=== PATIENT | female | born 1960 | race African-American/Black ===

== ENCOUNTER 2018-03-25 09:46 | Emergency (ER) | payer SELFPAY ==
[~2018-03-25] VITALS: Ht 167.6 cm; Wt 82.0 kg
[2018-03-25] MEDS ORDERED: HYDR-2510 PO (09:56)
[2018-03-25] MEDS ORDERED: AMLO2.5T45 PO (09:56)
[2018-03-25] MEDS ORDERED: KETOROLAC 30MG/ML VIAL IV ONE (10:30)
[2018-03-25] MEDS ORDERED: DEXAMETHASONE 10 MG/ML VIAL IV ONE (10:30)
[2018-03-25] MEDS ORDERED: SODIUM CHLORIDE 0.9% 1,000 ML IV ONE (10:30)
[2018-03-25] MEDS ORDERED: CLINDAMYCIN 600 MG in DEXTROSE 5% WATER 50 ML IV ONE (10:45)
[2018-03-25] MEDS ORDERED: CLINDAMYCIN 600 MG in DEXTROSE 5% WATER 50 ML IV SCH (11:15)
[2018-03-25 12:18] LABS: HEMATOCRIT. 35.2 % (36.0-48.0); HEMOGLOBIN. 11.7 g/dL (12.0-16.0); MEAN CORPUSCULAR HEMOGLOBIN 29.6 pg (28.0-32.0); MEAN CORPUSCULAR VOLUME 88.7 fL (81.0-99.0); MEAN PLATELET VOLUME 9.1 fl (7.4-10.4); PLATELET 204 x1000/uL (130-400); RED BLOOD CELL COUNT 3.97 mill/uL (4.2-5.4); RED CELL DISTRIBUTION WIDTH 13.4 % (11.6-14.6)
[2018-03-25 12:23] LABS: CHLORIDE 103 mEq/L (98-107); INR 1.1; PROTHROMBIN TIME 10.6 sec (9.1-11.1)
[2018-03-25 12:48] LABS: PLATELET ESTIMATE NORMAL
[2018-03-25 13:24] VITALS: BP 139/79
== END 2018-03-25 14:11 | disposition short-term general hospital (02) ==
LOC: ER 10:06
DX: J36 Peritonsillar abscess (principal); R25.2 Cramp and spasm; I10 Essential (primary) hypertension; Z98.890 Other specified postprocedural states; Z79.899 Other long term (current) drug therapy
CPT/HCPCS: 36415; 80053; 83605; 85025; 85610; 96365; 96366; 96375; 99285; J1100; J1885; J3490; J7030; J7060